=== PATIENT | female | born 1960 | race Caucasian/White ===

== ENCOUNTER → 2016-10-28 | Outpatient (CLI) | payer OTHER | LOC: FIMAGING 07:36 | PROVIDERS: ATTEND Family Medicine | DX: Z12.31 Encounter for screening mammogram for malignant neoplasm of breast (principal) | CPT/HCPCS: G0202 ==

== ENCOUNTER → 2017-09-12 | Outpatient (CLI) | payer OTHER ==
[~2017-09-12] MED LIST: IOPAMIDOL (ISOVUE 370) 100 ML BTL IV ONE
== END ==
LOC: FIMAGING 07:48
PROVIDERS: ATTEND Internal Medicine Cardiovascular Disease
DX: I25.10 Atherosclerotic heart disease of native coronary artery without angina pectoris (principal)
CPT/HCPCS: Q9967

== ENCOUNTER 2017-09-15 08:56 | Inpatient (IN) | payer OTHER ==
[2017-09-15] MEDS ORDERED: DIAZEPAM 5 MG TAB PO ONE (08:58)
[2017-09-15] MEDS ORDERED: ASPIRIN EC 325 MG TAB PO ONE (08:58)
[2017-09-15] MEDS ORDERED: diphenhydrAMINE 25 MG CAP PO ONE (08:58)
[2017-09-15] MEDS ORDERED: FAMOTIDINE 20 MG TAB PO ONE (08:58)
[2017-09-15] MEDS ORDERED: NS 1,000 ML IV ONE (08:58)
--- NOTE | 2017-09-15 09:13 | CPEKG ---
Heart Rate: 69 RR Interval: 870 P-R Interval: 124 QRSD Interval: 88 QT Interval: 424 QTC Interval: 455 P [place]: 77 QRS [place]: 81 T Wave [place]: -26 EKG Severity - ABNORMAL ECG - EKG Impression: SINUS RHYTHM EKG Impression: VENTRICULAR PREMATURE COMPLEX EKG Impression: SORAYA, CONSIDER BIATRIAL ABNORMALITIES EKG Impression: CONSIDER RVH W/ SECONDARY REPOL ABNORMALITY Electronically Signed By: Hamzah Bhatti 15-Sep-2017 16:47:22
[2017-09-15 09:34] LABS: PLATELET COUNT 204 10^3/uL (150-400)
[2017-09-15 09:42] LABS: INR 1.06 (0.83-1.16)
[2017-09-15] MEDS ORDERED: LIDOCAINE 1% 300 MG/30 ML SDV ONE (10:14)
[2017-09-15] MEDS ORDERED: MIDAZOLAM 2 MG/2 ML VIAL ONE ×3 (10:14→12:34)
[2017-09-15] MEDS ORDERED: fentaNYL 100 MCG/2 ML INJ ONE ×2 (10:14→12:03)
[2017-09-15] MEDS ORDERED: IOPAMIDOL (ISOVUE-370) 150 ML BTL IV ONE ×2 (10:15→12:52)
[2017-09-15] MEDS ORDERED: VERAPAMIL 5 MG/2 ML VIAL ONE (10:15)
[2017-09-15] MEDS ORDERED: HEPARIN 10,000 UNIT/10 ML MDV (1,000 UNIT/ML) ONE (10:15)
--- NOTE | 2017-09-15 10:57 | PDHPUP ---
History & Physical Update H&P update statement: This history and physical update is based on an assessment of the patient which was completed after admission or registration (within 24 hours), but prior to the surgery/procedure. H&P update: H&P reviewed & patient examined, no change in patient's condition since H&P completed
--- NOTE | 2017-09-15 10:59 | PDPROPOC ---
Sedation Plan of Care Sedation Plan of Care: vital signs stable, mental status noted, patient educated of risks, benefits, alternatives, patient can tolerate sedation ASA Classification: ASA 2 Planned drugs: fentanyl, midazolam, other Mallampati Score: Class 3 Mallampati Reference Image: Patient passed 3-3-2 rule?: Yes
--- NOTE | 2017-09-15 11:48 | PDDXCAT ---
Diagnostic Cath Note - . Date: 09/15/17 Plush Dresser: Phillip Indication: other (Positive coronary CTA that showed 80-90% proximal LAD stenosis combo of hard and soft plaque) - Procedure Access: right groin (With an attempt to pass guided cath pt had pain in her elbow and it was obvious the radial artery was too small to safely pass the catheter. We changed to the right groin for access.) Procedure: left heart catheterization, coronary angiography, left ventriculogram - Materials Left Heart Cath size: 7F Left Heart Cath materials: standard multipack (JL4, JR4, pigtail) - Findings-Left Heart Catheterization LM: The LM is 6mm in size. It bifurcates into an LAD and circumflex system. There is evidence of plaque on IVUS imaging with 10-15% stenosis by IVUS LAD: The LAD is 3.0 mm in size. There is a 90% lesion in the proximal LAD. LCX: The circumflex is 3.5mm in size. There is 15-20% stenosis of the ostial circumflex. After the initial LAD stent was placed, it caused a plaque shift of 70-80% stenosis in the left circumflex. RCA: Dominant and 3 mm in size no flow limiting CAD. JUAN III flow. EDP: 15mmHg LVEF: The EF is greater than 75%. Wall motion: On the LV gram there is normal LV systolic function. The EF is greater than 75%. There are no resting segmental wall motion abnormalities. 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 There is no gradient on pullback across the aortic valve. There is no evidence of lanette dissection or aneurysm formation. Complications: NONE. Estimated blood loss: <50ml Closure method: TR Band Assessment: The patient has habematolel vessel coronary disease with a 90% obstruction of the ostial LAD that required stenting. After the initial LAD stent was placed it caused a plaque shift in the circumflex with 70-80% luminal narrowing requiring a stent to be placed in the circumlex. IVUS was then performed and documented excellent stent placement in the LAD and circumflex. Plan: Dual antiplatelet therapy with Aspirin 325mg for the first month followed by Aspirin 81mg along with Plavix 75mg daily should be continued for at least 1 year following drug eluting stent implantation. No elective surgery for the first 3 months. Decisions to stop dual antiplatelet therapy before 1 year should involve our office [facility]. Intervention: With an attempt to pass guided catheter, the patient had pain in her elbow and it was obvious the radial artery was too small to safely pass the guiding catheter. We changed to the right groin for access. A 7 monegasque sheath was A 7F EBU guiding catheter was used for guide catheter support. A 0.014 Intuition Wire was advanced across the lesion in the proximal LAD under direct fluoroscopic and angiographic guidance. The lesion was primarily ballooned with a 3.0 x 12 mm Emerge balloon. After inflating the balloon there was a threat of shifting the plaque to the left circumflex. We placed a 0.014 Intuition wire into the left circumflex OM. We proceeded with stenting of the ostial LAD with a 3.0 x 12 mm drug eluting stent. This resulted in a plaque shift into the left circumflex OM with a 70-80% stenosis of the left circumflex. We then stented the circumflex with a 4.0 x 12mm Synergy stent. We performed simultaneous kissing balloon angioplasty of the LAD with a 3.25 x 12 Emerge balloon. We then performed IVUS of the LAD to document stent expansion as well as to look at the LAD stent/left circumflex stent interface. This documented excelled stent placement in the LAD and circumflex. the LAD vessel was widely patent. There was 20% residual stenosis in the proximal LAD. There is 0% residual stenosis of the circumflex post stent implantation. There is evidence of severe atherosclerosis seen on IVUS that was not appreciated on angiography.
[2017-09-15] MEDS ORDERED: EPINEPHrine 1 MG/10 ML SYR IVP ONE (12:10)
[2017-09-15] MEDS ORDERED: NITROGLYCERIN 1,500 MCG/15 ML VIAL MISC ONE (12:10)
[2017-09-15] MEDS ORDERED: PRASUGREL HCL 10 MG TAB ONE (12:58)
[2017-09-15] MEDS ORDERED: LORazepam 2 MG/ML INJ IVP PRN (13:14)
[2017-09-15] MEDS ORDERED: OXYCODONE/APAP 5/325 TAB PO PRN (13:14)
[2017-09-15] MEDS ORDERED: HYDROCODONE/APAP 5/325 TAB PO PRN (13:14)
[2017-09-15] MEDS ORDERED: ONDANSETRON 4 MG/2 ML VIAL IVP PRN (13:14)
[2017-09-15] MEDS ORDERED: PRASUGREL HCL 10 MG TAB PO ONE (13:14)
[2017-09-15] MEDS ORDERED: NITROGLYCERIN 0.4 MG BTL SL PRN (13:14)
[2017-09-15] MEDS ORDERED: TEMAZEPAM 15 MG CAP PO PRN (13:14)
[2017-09-15] MEDS ORDERED: ATROPINE SULFATE 1 MG/10 ML SYR IVP PRN (13:14)
--- NOTE | 2017-09-15 13:30 | CPEKG ---
Heart Rate: 56 RR Interval: 1071 P-R Interval: 136 QRSD Interval: 80 QT Interval: 448 QTC Interval: 433 P [place]: 70 QRS [place]: 79 T Wave [place]: 59 EKG Severity - BORDERLINE ECG - EKG Impression: SINUS RHYTHM EKG Impression: PROBABLE LEFT ATRIAL ABNORMALITY Electronically Signed By: Hamzah Bhatti 15-Sep-2017 16:46:58
[2017-09-15] MEDS ORDERED: ATORVASTATIN CALCIUM 40 MG TAB PO SCH (18:00)
[2017-09-15] MEDS ORDERED: METOPROLOL SUCCINATE XR 25 MG TAB PO SCH (18:00)
--- NOTE | 2017-09-15 21:59 | CPEKG ---
Heart Rate: 57 RR Interval: 1053 P-R Interval: 136 QRSD Interval: 84 QT Interval: 436 QTC Interval: 425 P [place]: 74 QRS [place]: 83 T Wave [place]: 79 EKG Severity - BORDERLINE ECG - EKG Impression: SINUS RHYTHM EKG Impression: PROBABLE LEFT ATRIAL ABNORMALITY EKG Impression: BORDERLINE T ABNORMALITIES, ANT-LAT LEADS Electronically Signed By: Hamzah Bhatti 15-Sep-2017 22:05:15
--- NOTE | 2017-09-15 22:09 | HOSPPROG ---
Hospitalist Progress Note Assessment/Plan: Cross-cover note: Called bedside for bradycardia, hypotension. 56F who underwent cath today; right groin approach. Stent to proximal LAD that caused shift of plaque into left circumflex that was stented as well. S: Patient stood up and felt very dizzy, "seeing starts" and sat back on bed. No back pain HR 40s, SBP 50 Physical exam Gen: very pale, diaphoretic CV: page, regular Lungs: clear anteriorly [place]: groin site intact, no hematoma Rhythm strip: junctional rhythm; loss of P-waves, rate 40 A&P: 1: Hypotension: suspect vaso-vagal. BP quickly rebounded, now SBP 100. 1L NS bolus. Consider bleed, but H/H is stable along with metabolic panel 2. CAD: LAD, LCx stent today. Effient, BB, statin RN will call Cardiology to inform of event Critical care time spent: 35 min bedside with pt, reviewing progress notes, telemetry Objective: Vital Signs Temp Pulse Resp BP Pulse Ox 36.7 C 86 18 118/78 96 09/15/17 19:00 09/15/17 21:23 09/15/17 21:23 09/15/17 21:23 09/15/17 21:23 Laboratory Results 09/15/17 09:10 09/15/17 09:10 PT 14.0 SEC (12.0-15.0) 09/15/17 09:10 INR 1.06 (0.83-1.16) 09/15/17 09:10 - Time Spent With Patient Time Spent with Patient: greater than 35 minutes Time Spent with Patient: Greater than 35 minutes spent on this patients care, greater than 50% of time spent counseling, educating, and coordinating care regarding the above mentioned plan. ICD10 Worksheet Patient Problems: Problems Problem Status Onset Hypotension Acute - ICD10 Problem Qualifiers (1) Hypotension
[2017-09-16 04:28] LABS: PLATELET COUNT 178 10^3/uL (150-400)
[2017-09-16] MEDS ORDERED: LEVOTHYROXINE 75 MCG TAB PO SCH (06:00)
[2017-09-16 07:19] VITALS: BP 109/65
--- NOTE | 2017-09-16 08:51 | CPEKG ---
Heart Rate: 69 RR Interval: 870 P-R Interval: 132 QRSD Interval: 88 QT Interval: 400 QTC Interval: 429 P [place]: 78 QRS [place]: 86 T Wave [place]: -17 EKG Severity - ABNORMAL ECG - EKG Impression: SINUS RHYTHM EKG Impression: LEFT ATRIAL ABNORMALITY Electronically Signed By: Bib Fierro 17-Sep-2017 11:22:19
[2017-09-16] MEDS ORDERED: LOSARTAN POTASSIUM 50 MG TAB PO SCH (09:00)
[2017-09-16] MEDS ORDERED: PRASUGREL HCL 5 MG TAB PO SCH (09:00)
[2017-09-16] MEDS ORDERED: ASPIRIN EC 325 MG TAB PO SCH (09:00)
--- NOTE | 2017-09-16 11:26 | PDMN ---
Medical Necessity Medical necessity: MCG: [facility] Cardiology. 56 y/o s/p left heart catheterization, coronary angiography and left ventriculogram developed complications: dizziness , severe bradycardia and hypotension (HR 40s, SBP 50s), junctional rhythm noted , loss of P waves. Cardiology notified. IV NS bolus required. Symptoms returned less than hour later, SBG 60, HR 50, stat team called. Pending further workup. Anticipate >2MN for ongoing monitoring and treatment.
--- NOTE | 2017-09-16 12:38 | GDS ---
[f rep st] DISCHARGE SUMMARY SUPERVISING ASSOCIATE CHEMIST: Dr. Sohail Fisher. ADMISSION DIAGNOSES: 1. Coronary artery disease. 2. Hypertension. 3. Hyperlipidemia. 4. Premature ventricular contractions. 5. Abnormal stress testing and coronary CT angiogram. DISCHARGE DIAGNOSES: 1. Coronary artery disease. 2. Status post percutaneous coronary intervention with stent implantation to the proximal LAD with a 3.0 x 12 Synergy YUSRA and a 4.0 x 12 Synergy YUSRA into the proximal circumflex. 3. Hypertension. 4. Hyperlipidemia. PROCEDURES PERFORMED DURING HOSPITALIZATION: 1. Electrocardiogram. 2. Diagnostic heart catheterization. 3. Percutaneous coronary intervention with YUSRA implantation of a 3.0 x 12 Synergy YUSRA into the proxi mal LAD and a 4.0 x 12 Synergy stent into the proximal circumflex artery. BRIEF HISTORY: Please see H and P. The patient is a 56-year-old female who has been noted to have m ore frequent premature ventricular contractions and palpitations. She is noted to have a positive ca rdiac calcium score in the past. She had recently underwent ETT MPI study. Exercise treadmill was s ignificantly abnormal. MPI study did not show any ischemia. She did undergo a CT coronary angiogram, which showed proximal LAD lesion. At that point, it was decided that she be brought in for a diagno stic cardiac catheterization for further evaluation. HOSPITAL COURSE: Patient was admitted through CVC, prepped for procedure, and taken to the cardiac c atheterization lab. There, she underwent diagnostic coronary angiogram, from the right groin, right femoral artery approach. It was noted that the left main was 6 mm in size. By intravascular ultrasou nd, she did have a 10-15 stenosis. LAD had a 90% proximal LAD lesion. Circumflex, there was noted t o be 15% to 20% stenosis of the ostium. RCA, no flow-limiting disease and dominant. LVEF was greate r than 75%, with EDP of 15 mmHg. At that point, percutaneous coronary intervention was done by Dr. Cosmo goldstein. After initially putting in a stent to the proximal LAD, there was a significant plaque shift into the circumflex, causing the narrowing to worsen. At that point, a second stent was deployed int o the ostium of the circ and followed by a "kissing balloon" technique, causing 0 residual stenosis i n the circumflex and LAD. No apparent complications. Patient was taken to the CVC and ultimately to the PCU overnight. During the evening, the patient was noted to become mildly bradycardic with a ju nctional rhythm, with significant diaphoresis. She was seen by the hospitalist services at that time . IV fluid was given, and it was felt that this was a vasovagal reaction from her recent procedure. She did improve with IV fluids and returned back into a sinus rhythm, where she has maintained sinus rhythm since then. No other malignant arrhythmias or pauses noted. At this time, she has been up a nd walking in the unit without difficulties. She denies any chest pain, shortness of breath, or symp toms suggesting of ischemia. CURRENT PHYSICAL EXAMINATION: GENERAL APPEARANCE: Tall, thin, well-groomed female. She i s alert and oriented to person, place, time, and situation. Current blood pressure is 109/65, heart rate of 60, sinus rhythm on the monitor. Respirations are 12, saturating 95% on room air. HEENT: H ead is normocephalic. Lips and tongue are pink and moist, with no signs of cyanosis. Conjunctivae p ink. NECK: Trachea is midline. +2 carotid pulses bilateral. No auscultated bruits. No jugular ve in distention. RESPIRATORY: Lungs are clear to auscultation. No rhonchi, rales or wheezes. No acc essory muscle use. No intercostal muscle retraction noted. CARDIAC: Regular rate, regular rhythm, S1, S2. No S3, S4, gallops, rubs or murmurs noted. ABDOMEN: Soft, nontender, bowel sounds x4 quadr ants. No organomegaly. No palpable masses. SKIN: [place], warm, dry, no cyanosis, no clubbing, no pe ripheral edema. VASCULAR: +2 carotids bilateral, +2 radials bilateral, +2 posterior tibial pulses b ilateral. Catheter insertion site, right groin site, with no redness, swelling, ecchymosis or hemato ma. No auscultated bruit noted over the site. LABORATORY STUDIES: Laboratory studies drawn today show WBC of 9.13, hemoglobin of 13.3, hematocrit of 39.2, platelet count of 178, sodium 139, potassium 4.6, chloride 108, CO2 25, BUN 15, creatinine 0 .7. Glucose of 90, calcium 8.9, phosphorus 3.8, magnesium 2.0. Noted fasting lipid panel drawn yeste rday showed triglycerides of 114, total cholesterol 140, LDL of 62, HDL 55. Morning electrocardiogra m showing sinus rhythm, normal axis, with no ST or T-wave abnormalities. Procedures, cardiac cathete rization, diagnostic cardiac catheterization, intervention as mentioned above. DISCHARGE DISPOSITION: Patient will be discharged home in stable condition. She is under activity r estrictions of no strenuous activity, not lifting more than 10 pounds for the next week and no strenu ous activity for the next 2 weeks. DISCHARGE MEDICATIONS: Please see discharge medication reconciliation sheet. Note, patient has been on home medications. Aspirin therapy has been increased to 325 mg p.o. daily. She has also been st arted on Effient at 5 mg daily. Note, her weight is less than 60 kilos. DISCHARGE INSTRUCTIONS: Post percutaneous coronary intervention discharge instructions explained to the patient, including monitoring for signs of infection, activity restrictions, and medication compl iance. The importance of dual antiplatelet therapy medications were explained both to the patient an d , which they verbalize understanding. 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 Zamora, next week. At the time of discharge, patient and verbalized u nderstanding of all instructions, have no questions or concerns. Patient has been told that if any p roblems or concerns come up post discharge, they are to notify our office or return to the hospital. Total time spent on discharge: Greater than 30 minutes. /[id number]/MODL
== END 2017-09-16 11:53 | disposition home or self-care (01) | DRG 247 ==
LOC: FCATH 08:56 → F2W 13:15
PROVIDERS: ADMIT Internal Medicine Cardiovascular Disease; ATTEND Internal Medicine Cardiovascular Disease
DX: I25.10 Atherosclerotic heart disease of native coronary artery without angina pectoris (principal); I10 Essential (primary) hypertension; E78.5 Hyperlipidemia, unspecified; I49.3 Ventricular premature depolarization; E03.9 Hypothyroidism, unspecified; F41.9 Anxiety disorder, unspecified
CPT/HCPCS: 82435-PO; 82565-PO; 82947-PO; 84132-PO; 84295-PO; 84520-PO; 85014-PO; C1725; C1753; C1769; C1874; C1887; C9600; J0461; J1200; J1644; J2250; J3010; Q9967

== ENCOUNTER → 2017-12-19 | Outpatient (CLI) | payer OTHER | LOC: FIMAGING 07:41 | PROVIDERS: ATTEND Family Medicine | DX: Z12.31 Encounter for screening mammogram for malignant neoplasm of breast (principal) ==